=== PATIENT | female | born 1980 | race Caucasian/White ===

== ENCOUNTER 2022-09-25 13:56 | Outpatient (CLI) | payer BC ==
[2022-09-25 15:04] LABS: #Eosinphils 0.2 10x3/uL (0.0-0.5); #Monocytes 0.7 10x3/uL (0.0-1.1); #Neutrophils 5.9 10x3/uL (1.5-8.4); %Basophils 0.4 % (0.0-2.0); %Eosinophils 1.6 % (0.0-6.0); %Lymphocytes 28.7 % (18.0-47.0); %Monocytes 7.2 % (0.0-10.0); %Neutrophils 61.8 % (40.0-75.0); Hemoglobin 13.6 g/dL (12.0-15.5); Mean Corpuscular HGB CONC 32.6 g/dL (32.0-36.0); Mean Corpuscular Hemoglobin 29.6 pg (27.0-33.0); Mean Corpuscular Volume 90.8 fl (81.6-98.3); Mean Platelet Volume 11.4 fl (7.4-10.4); Platelet Count 288 10x3/uL (150-450); Red Blood Cell (RBC) Count 4.59 10x6/uL (3.90-5.03); White Blood Cell (WBC) Count 9.6 10x3/uL (3.5-10.5)
[2022-09-25 15:13] LABS: BHCG - Serum Negative (NEGATIVE); Pregs Control Background? CLEAR/WHITE (CLR/WHITE); Pregs Control Bar Appear? YES (CONTROL BAR)
== END 2022-09-25 13:57 | disposition home or self-care (01) ==
LOC: LABBT 13:56
PROVIDERS: ATTEND Orthopaedic Surgery
DX: Z01.812 Encounter for preprocedural laboratory examination (principal); M23.41 Loose body in knee, right knee
CPT/HCPCS: 84703; 85025

== ENCOUNTER 2022-10-02 09:12 | Day surgery (SDC) | payer BC ==
[2022-10-01 10:14] VITALS: BMI 32.8
[2022-10-02] MEDS ORDERED: PROPOFOL 20 ML ONE ×2 (11:40→12:20)
[2022-10-02] MEDS ORDERED: Lidocaine 2% PF 5 ML VIAL ONE (11:41)
[2022-10-02] MEDS ORDERED: Dexmedetomidine 200 MCG/2 ML VIAL ONE (11:54)
[2022-10-02] MEDS ORDERED: CEFAZOLIN 2 GM VIAL ONE (11:56)
[2022-10-02] MEDS ORDERED: Sodium Chloride 0.9% 100 ML ONE (11:56)
[2022-10-02] MEDS ORDERED: Bupivacaine PF 0.5% 30 ML VIAL ONE (12:07)
[2022-10-02] MEDS ORDERED: fentaNYL PF 100 MCG/2 ML SYRINGE ONE (12:20)
[2022-10-02] MEDS ORDERED: Bupivacaine HCl 0.5%/Epinephrine 1:200,000/PF 30 ml Vial ONE (12:21)
[2022-10-02] MEDS ORDERED: Dexamethasone 20 MG/5 ML VIAL ONE (12:21)
[2022-10-02] MEDS ORDERED: Ketorolac Tromethamine 30 MG/ML VIAL ONE (12:21)
[2022-10-02] MEDS ORDERED: Ondansetron PF 4 MG/2 ML Vial ONE (12:21)
[2022-10-02] MEDS ORDERED: PROPOFOL 40 ML ONE (12:56)
[2022-10-02] MEDS ORDERED: Fentanyl 100 MCG/2 ML VIAL ONE (13:43)
[2022-10-02] MEDS ORDERED: HYDROcodone/Acetaminophen 5/325 mg Tablet ONE (14:57)
== END 2022-10-02 15:10 | disposition home or self-care (01) ==
LOC: SDC 09:12
PROVIDERS: ATTEND Orthopaedic Surgery
PROC: 0SCC4ZZ Extirpation of Matter from Right Knee Joint, Percutaneous Endoscopic Approach (ICD-10-PCS; principal; 2022-10-02)
PROC: 0SBC4ZZ Excision of Right Knee Joint, Percutaneous Endoscopic Approach (ICD-10-PCS; principal; 2022-10-02)
DX: S83.281A Other tear of lateral meniscus, current injury, right knee, initial encounter (principal); M23.41 Loose body in knee, right knee; M17.11 Unilateral primary osteoarthritis, right knee; M25.761 Osteophyte, right knee
CPT/HCPCS: J1100; J1885; J2001; J2405; J2704; J3010; J3490; S0020